=== PATIENT | female | born 1975 | race American Indian/Alaskan Native ===

== ENCOUNTER 2019-04-24 00:27 | Emergency (ER) | payer SELFPAY ==
[2019-04-24 01:07] VITALS: BP 136/83
--- NOTE | 2019-04-24 05:42 | Emergency Department Report ---
Chief Complaint: Dental/Oral Stated Complaint: TOOTH PAIN Time Seen by Provider: 04/24/19 05:37 - HPI History of Present Illness: 43-year-old -[place] female presents to the emergency room for tooth pain for 2 hours prior to arrival. Patient reports she was chewing gum when she felt her tooth break on the left upper quadrant. Patient reports she is aware that she had a bad tooth that had recently evaluated by a dentist but did not realize it was at bad. She denies any facial swelling. Patient has a past medical history diabetes and hypertension. Patient visiting from [facility] visiting. - Exam Vital Signs: Vital Signs 04/24/19 01:04 Temperature 98.3 F Pulse Rate 71 Respiratory 20 Rate Blood Pressure 136/83 O2 Sat by Pulse 97 Oximetry Physical Exam: Gen: alert oriented NAD Oral moist, #13 is fractured with further lateral break pieces are intact in gum. MSE screening note: Focused history and physical exam performed. Due to findings the following was ordered: 43-year-old -[place] female presents to the emergency room for tooth pain for 2 hours prior to arrival. Patient reports she was chewing gum when she felt her tooth break on the left upper quadrant. Patient reports she is aware that she had a bad tooth that had recently evaluated by a dentist but did not realize it was at bad. She denies any facial swelling. Patient has a past medical history diabetes and hypertension. Patient visiting from [facility] visiting. Provider made in the tip to pull fragment of tooth but not able to pull since tooth is still implanted in root. Discuss with the patient to follow up with a dentist. Also discussed the patient she can try some [id number] temporary filling [id number] around to to protect it from breaking off. ED Disposition for MSE Clinical Impression: Fracture, tooth Disposition: Z-07 MED SCREENING EXAM-LEFT Is pt being admited?: No Does the pt Need Aspirin: No Condition: Stable Additional Instructions: Take Tylenol or ibuprofen for pain management. Please temporary filling to mold around tooth to help stabilize. Follow what with the dentist. Referrals: PRIMARY CARE,MD [Primary Care Provider] - 3-5 Days Your, Dentist [Other] - 3-5 Days
== END 2019-04-24 06:28 | disposition left against medical advice (07) ==
LOC: ED 00:27
DX: S02.5XXA Fracture of tooth (traumatic), initial encounter for closed fracture (principal); X58.XXXA Exposure to other specified factors, initial encounter; Y93.89 Activity, other specified; Y92.89 Other specified places as the place of occurrence of the external cause; Y99.8 Other external cause status